=== PATIENT | male | born 1985 | race Caucasian/White ===

== ENCOUNTER → 2021-08-01 | Outpatient (CLI) | payer OTHER ==
[~2021-08-01] MED LIST: CONTRAST GIVEN. MC PRN; IOHEXOL 300 MG/ML 100ML VIAL. IV ONE
--- NOTE | 2021-08-01 12:28 | RAD ---
EXAM: Abdomen and pelvis CT enterography with intravenous contrast. HISTORY: Diffuse pain. TECHNIQUE: Computed tomographic images of the abdomen and pelvis were obtained following the administ ration of intravenous contrast and oral contrast according to enterography protocol. Multiplanar refo rmatting was performed. *One or more of the following individualized dose reduction techniques were utilized for this examina tion: 1. Automated exposure control. 2. Adjustment of the mA and/or kV according to patient size. 3. Use of iterative reconstruction technique. COMPARISON: None. FINDINGS: Evaluation of the lower thorax demonstrates no infiltrate or pleural effusion. The heart is normal in size. No hepatic lesion is seen. The gallbladder, pancreas, spleen, adrenal glands and kid neys are unremarkable. The urinary bladder is unremarkable. There is a large amount of stool throughout the colon. There is fecal material within the distal smal l bowel. There is no appendicitis. There is no bowel obstruction. There is relative decompression of the transverse colon. There is no significant bowel wall thickening or surrounding inflammatory stran ding. There are a few curvilinear radiodense structures within the small bowel within the left and mi d abdomen, consistent with dense ingested bolus. The aorta is normal in caliber. There are prominent lymph nodes throughout the mesentery, likely phys iologic in a patient of this age. There is no convincing lymphadenopathy. There is no acute or subacu te osseous finding. IMPRESSION: 1. Large amount of colonic stool. Correlate for constipation. 2. Fecal material within distal small bowel loops, finding which can be seen with chronic inflammatio n or delayed small bowel transit. There is no evidence to suggest acute bowel obstruction. 3. Few curvilinear greater than structures within the small bowel within the left and mid abdomen. Co rrelate for dense ingested bolus. Electronically signed by: Nata Rubio MD (08/01/2021 12:26 PM) [id number]
== END ==
LOC: CT 07:30
PROVIDERS: ATTEND Internal Medicine Gastroenterology
DX: K56.41 Fecal impaction (principal)
CPT/HCPCS: 74177; Q9967